=== PATIENT | male | born 1980 | race Hispanic/Latino ===

== ENCOUNTER 2019-07-05 12:53 | Emergency (ER) | payer OTHER ==
[2019-07-05] MEDS ORDERED: DOXYCYCLINE HYCLATE 100 MG TABLET PO ONE (13:34)
[2019-07-05] MEDS ORDERED: CEFTRIAXONE SODIUM 1 GM ONE (13:34)
[2019-07-05] MEDS ORDERED: LIDOCAINE HCL-MPF 1% 2ML VIAL ONE (13:34)
== END 2019-07-05 13:49 | disposition home or self-care (01) ==
LOC: EDH 12:53
DX: S91.111A Laceration without foreign body of right great toe without damage to nail, initial encounter (principal); S60.512A Abrasion of left hand, initial encounter; S90.812A Abrasion, left foot, initial encounter; S90.811A Abrasion, right foot, initial encounter; L03.031 Cellulitis of right toe; X58.XXXA Exposure to other specified factors, initial encounter; Y93.89 Activity, other specified; Y92.832 Beach as the place of occurrence of the external cause; Y99.8 Other external cause status
CPT/HCPCS: 73630; 96372; 99284; J0696; J3490

== ENCOUNTER 2025-08-20 20:19 | Emergency (ER) | payer OTHER ==
[~2025-08-20] VITALS: Ht 177.8 cm; Wt 117.9 kg
[2025-08-20 20:41] LABS: IMMATURE GRANULOCYTE ABSOLUTE 0.02 K/uL (0-1); NUCLEATED RED BLOOD CELLS 0.0 % (0.0-0.19); PLATELET COUNT (AUTO) 336 K/uL (130-400); RED BLOOD CELL COUNT(AUTO) 5.43 MIL/uL (4.50-6.20); RED CELL DISTRIBUTION WIDTH 12.1 % (11.0-15.5); WHITE BLOOD COUNT (AUTO) 8.4 K/uL (4.8-10.8)
[2025-08-20 20:51] LABS: CREATININE 0.9 mg/dL (0.5-1.3); GLOMERULAR FILTR. RATE CALC 107.0 mL/min (>90); GLUCOSE,RANDOM 132.0 mg/dL (70-105); SODIUM SERUM 141.0 mmol/L (136-145); UREA NITROGEN, BLOOD 9.0 mg/dL (7-18)
[2025-08-20 20:56] LABS: CREATINE KINASE, TOTAL 81.0 U/L (21-232)
--- NOTE | 2025-08-20 21:11 | HMCIMG ---
EXAM: CR Chest, 1 View. CLINICAL HISTORY: CHEST PAIN COMPARISON: None provided. FINDINGS: LUNGS: There is no mass, infiltrate, or acute pulmonary abnormality. PLEURAL SPACES: No evidence of pleural effusion or pneumothorax. MEDIASTINUM: Cardiac size and mediastinal contours within normal limits. BONES: No acute osseous abnormality. IMPRESSION: No acute cardiopulmonary pathology is evident. /[place]
[2025-08-20 21:37] LABS: APPEARANCE,URINE CLEAR (CLEAR); GLUCOSE, URINE (UA) NEGATIVE (NEGATIVE); LEUKOCYTE ESTERASE ,URINE NEGATIVE Leu/uL (NEGATIVE); NITRATE,URINE NEGATIVE (NEGATIVE); OCCULT BLOOD,URINE NEGATIVE (NEGATIVE)
[2025-08-20 21:43] LABS: AMPHET/METH SCREEN,URINE NEGATIVE (NEGATIVE); BARBITURATE SCREEN, URINE NEGATIVE (NEGATIVE); CANNABINOID SCREEN,URINE NEGATIVE (NEGATIVE); COCAINE SCREEN,URINE POSITIVE (NEGATIVE)
[2025-08-20 21:48] LABS: ADD UA MICROSCOPIC NO
[2025-08-20] MEDS: ASPIRIN 325MG TAB PO ONE (21:51)
[2025-08-20] MEDS: NITROGLYCERIN 1GM OINT 1 INCH/1GM TD ONE (21:51)
[2025-08-20] MEDS: 0.9%NACL 1000ML 1,000 ML IV ONE (21:51)
--- NOTE | 2025-08-20 22:11 | NUR ---
TRIAGE EDIT TO REFLECT UDS RESULTS
--- NOTE | 2025-08-20 22:32 | ERN ---
ED Note History of Present Illness Stated Complaint: CP Chief Complaint: Chest Pain Time Seen by MD: 20:22 Time Seen by Midlevel: 20:22 Dictation: The Patient is a 44-year-old male with no significant past medical history who presents to the emergency department with complaints of left-sided chest pain that radiates to the jaw onset prior to arrival. Patient reports pain as pr essure. Reports feeling lightheaded. Patient reports that he was outside [facility] ([facility]] and was upset at his dog for ruining some plants in the back yd. Patient reports some shortness of breath. Denies any drug use, denies any recent travel or upper respiratory symptoms. Allergies: Coded Allergies: No Known Allergies (Unverified Allergy, Unknown, 07/05/19) Past Medical History Past Medical History: Hypertension Surgical History: None RN Note Reviewed/Agreed w/PFSH: Yes Review of System Dictation Constitutional: Negative for fever,chills, and weight loss Eyes: Negative for injury, pain,redness, and discharge ENT: Negative for injury,pain or swelling Cardiovascular: Negative for palpitations, and edema positive for chest pain Respiratory: Negative for cough, and wheezing, positive for shortness of breath Abdomen/GI: Negative for abdominal pain, nausea, vomiting, diarrhea, and constipation Back: Negative for injury and pain : Negative for injury, bleeding and discharge MS/Extremity: Negative for injury and deformity Skin: Negative for rash, and discoloration Neuro: Negative for headache, weakness, numbness, tingling, and seizure Psych: Negative for suicide ideation, homicidal ideation, and hallucinations Initial Vital Sign VS Vital Signs Date Time Temp Pulse Resp B/P (MAP) Pulse Ox O2 Delivery O2 Flow Rate FiO2 08/20/25 20:20 97.9 122 20 197/110 97 Room Air 08/20/25 20:36 0 21 Physical Exam Dictation Vital Signs reviewed General Appearance: Alert, oriented x 3, no acute distress, well developed, nourished. Head and Face: non-traumatic. Eyes: PERRL, pink conjunctivas, eyelid no trauma, anterior chamber with arcus senilis. Ears: Pinnas intact and no signs of trauma or erythema ear canals clear and no discharge TM no erythema Nose: No discharge, no bleeding. Oropharynx: Mouth normal, tongue pink. pharynx clear,no erythema, tonsils no exudates, no abscesses noted, mucous membrane moist Neck: Supple, non-tender, no thyromegaly, no masses, no JVD, no bruits Breast:Deferred Chest:No tenderness, no crepitus, no paradoxical movement, no retractions Lungs:Clear, well-ventilated, symmetric, no rales, no wheezing, no rhonchi, no stridor, good breath sounds bilaterally Heart: Regular rate, regular rhythm, no murmur, no gallops Vascular: no peripheral edema, Abdomen: Soft, positive bowel sounds, nondistended, no guarding, nontender, no rebound, no masses no hepatomegaly, no splenomegaly, no Tong's sign, no hernias. Rectal: Deferred Genital: Deferred Neurological: Normal speech, motor function intact, sensory function intact Musculoskeletal: Neck nontender, full range of motion, back nontender, full range of motion, Extremities: nontender, full range of motion Skin: Color pink, dry, no turgor, no rash, no lacerations, no abrasions, no contusions. Lymphatic: Deferred Results (Laboratory/Radiology) Laboratory/Radiology Laboratory Tests Test 08/20/25 20:34 08/20/25 21:24 08/20/25 21:59 White Blood Count 8.4 K/uL (4.8-10.8) Red Blood Count 5.43 MIL/uL (4.50-6.20) Hemoglobin 16.2 g/dL (14.0-18.0) Hematocrit 46.5 % (42-54) Mean Corpuscular Volume 85.6 fL (79-99) Mean Corpuscular Hemoglobin 29.8 pg (27.0-33.0) Mean Corpuscular Hemoglobin Concent 34.8 g/dL (32.0-36.0) Red Cell Distribution Width 12.1 % (11.0-15.5) Platelet Count 336 K/uL (130-400) Mean Platelet Volume 9.6 fL (7.5-10.5) Immature Granulocyte % (Auto) 0.2 % (0-1) Neutrophils (%) (Auto) 46.5 % (40.0-77.0) Lymphocytes (%) (Auto) 44.7 % (21.0-51.0) Monocytes (%) (Auto) 5.6 % (3.0-13.0) Eosinophils (%) (Auto) 2.5 % (0.0-8.0) Basophils (%) (Auto) 0.5 % (0.0-5.0) Neutrophils # (Auto) 3.9 K/uL (1.8-7.7) Lymphocytes # (Auto) 3.7 K/uL (1.0-4.8) Monocytes # (Auto) 0.5 K/uL (0.1-1.0) Eosinophils # (Auto) 0.21 K/uL (0.00-0.70) Basophils # (Auto) 0.04 K/uL (0.00-0.20) Absolute Immature Granulocyte (auto 0.02 K/uL (0-1) Nucleated Red Blood Cells 0.0 % (0.0-0.19) Sodium Level 141 mmol/L (136-145) Potassium Level 3.6 mmol/L (3.5-5.1) Chloride Level 101 mmol/L (101-111) Carbon Dioxide Level 28 mmol/L (21-32) Blood Urea Nitrogen 9 mg/dL (7-18) Creatinine 0.9 mg/dL (0.5-1.3) Glomerular Filtration Rate Calc 107 mL/min (>90) Random Glucose 132 mg/dL (70-105) H Total Calcium 9.2 mg/dL (8.5-10.1) Total Creatine Kinase 81 U/L (21-232) Troponin I High Sensitivity < 4 ng/L (4-75) L 4 ng/L (4-75) B-Type Natriuretic Peptide 5 pg/mL (0-100) Lipase 56 U/L (16-77) Urine Color COLORLESS (YELLOW) Urine Appearance CLEAR (CLEAR) Urine pH 5.5 (5.0-8.0) Urine Specific [place] 1.007 (1.001-1.031) Urine Protein NEGATIVE mg/dL (NEGATIVE) Urine Glucose (UA) NEGATIVE mg/dL (NEGATIVE) Urine Ketones NEGATIVE mg/dL (NEGATIVE) Urine Occult Blood NEGATIVE (NEGATIVE) Urine Nitrate NEGATIVE (NEGATIVE) Urine Bilirubin NEGATIVE mg/dL (NEGATIVE) Urine Urobilinogen 0.2 mg/dL (0.2-1.0) Urine Leukocyte Esterase NEGATIVE Miguelina/uL Urine Opiates Screen NEGATIVE (NEGATIVE) Urine Barbiturates Screen NEGATIVE (NEGATIVE) Urine Phencyclidine Screen NEGATIVE (NEGATIVE) Urine Amphetamines Screen NEGATIVE (NEGATIVE) Urine Benzodiazepines Screen NEGATIVE (NEGATIVE) Urine Cocaine Screen POSITIVE (NEGATIVE) H Urine Marijuana (THC) Screen NEGATIVE (NEGATIVE) REASON: CHEST PAIN ORDERING PHYSICIAN: OLGA PEREZ MD PROCEDURE: CXR1VW - CHEST 1VW EXAM: CR Chest, 1 View. CLINICAL HISTORY: CHEST PAIN COMPARISON: None provided. FINDINGS: LUNGS: There is no mass, infiltrate, or acute pulmonary abnormality. PLEURAL SPACES: No evidence of pleural effusion or pneumothorax. MEDIASTINUM: Cardiac size and mediastinal contours within normal limits. BONES: No acute osseous abnormality. IMPRESSION: No acute cardiopulmonary pathology is evident. /[place] Labs Reviewed?: Yes EKG: (+) rhythm (Sinus tachycardia) EKG Comment: Date:08/20/2025 Time:2016 Ventricular rate:114 MS interval:154 QRS duration:91 QT/QTc:314/432 EKG interpretation: Sinus tachycardia Reviewed by ED Attending no STEMI ED Course ED Course Orders Procedure Category Date Status Time Vital Signs Per CPOE 08/20/25 Transmitted Routine 20:21 Chest 1vw RAD 08/20/25 Resulted 20:21 12 Lead Ekg Tracing- EKG 08/20/25 Logged Technical 20:21 Oxygen By Nc/Pulse Ox CPOE 08/20/25 Transmitted 20:21 Maintain Iv CPOE 08/20/25 Transmitted 20:21 Iv Insertion CPOE 08/20/25 Transmitted 20:21 Cardiac Monitoring CPOE 08/20/25 Transmitted 20:21 Pulse Oximetry With CPOE 08/20/25 Transmitted Vs And Prn 20:21 Cbc With Differential LAB 08/20/25 Complete 20:21 Activity: Br W/Brp CPOE 08/20/25 Transmitted With Assist 20:21 Creatine Kinase, Total LAB 08/20/25 Complete 20:21 Troponin I High LAB 08/20/25 Complete Sensitivity 20:21 Urinalysis Profile LAB 08/20/25 Complete 20:21 Basic Metabolic Panel LAB 08/20/25 Complete 20:21 Lipase LAB 08/20/25 Complete 20:21 Drug Screen Urine LAB 08/20/25 Complete 20:21 B-Type Natriuretic LAB 08/20/25 Complete Peptide 20:33 0.9%Nacl 1000ml (Ns PHA 08/20/25 In Process 1000ml) 21:00 Nitroglycerin 1gm PHA 08/20/25 Complete Oint (Nitroglycerin 1g 21:00 Aspirin 325mg Tab PHA 08/20/25 Complete (Aspirin 325mg Tab) 21:00 Troponin I High LAB 08/20/25 Complete Sensitivity 21:45 Current Medications Medications (Trade) Dose Ordered Sig/Danielito Route PRN Reason Start Time Stop Time Status Last Admin Dose Admin Aspirin (Aspirin 325mg Tab) 325 mg ONCE ONCE PO 08/20/25 21:00 08/20/25 21:01 DC 08/20/25 21:51 Nitroglycerin (Nitroglycerin 1gm Oint) 1 inch ONCE ONCE TD 08/20/25 21:00 08/20/25 21:01 DC 08/20/25 21:51 Sodium Chloride 1,000 ml @ 125 mls/hr ONCE ONCE IV 08/20/25 21:00 08/21/25 04:59 08/20/25 21:51 Vital Signs Date Time Temp Pulse Resp B/P (MAP) Pulse Ox O2 Delivery O2 Flow Rate FiO2 08/20/25 22:02 92 18 142/92 92 Room Air* 0 08/20/25 20:36 110 16 161/105 96 Room Air* 0 08/20/25 20:20 97.9 122 20 197/110 97 Room Air HEART Score Response (Comments) Value History: Moderate suspicion (+1) 1 EKG: Normal 0 Age: 45-65yrs (+1) 1 Risk Factors: 1-2 risk factors (+1) 1 Initial Troponin: Normal limit (0) 0 Total 3 Medical Decision Making MDM The Patient is a 44-year-old male with no significant past medical history who presents to the emergency department with complaints of left-sided chest pain that radiates to the jaw onset prior to arrival. Patient reports pain as pres sure. Reports feeling lightheaded. Patient reports that he was outside barbecuing and was upset at his dog for ruining some plants in the back yd. Patient reports some shortness of breath. Denies any drug use, denies any recent travel or upper respiratory symptoms. CBC showed no leukocytosis, no anemia, chemistry showed no electrolyte imbalance, negative troponin x2, chest x-ray showed no acute pathology, urinary drug screen positive for cocaine. Patient was reassessed. Reports his chest pain and shortness of breath went away. Patient reports he feels calm now. Reports he was just having an anxiety attack because of the issues with the his dogs. Patient continues in no acute distress, neurologically intact. Vital signs are stable. Tachycardia improved. Patient with no swelling to bilateral lower legs, no recent travel or recent surgeries. Not hypoxic. Patient with low heart score. We will discharge patient to follow up with PCP. Differential diagnosis: ACS, anxiety, pneumonia, pneumothorax, electrolyte imbalance Need for hospitalization: Patient does not meet criteria for hospitalization. There are no social concerns with this patient. DX & DISP Disposition: Discharge Departure Impression: Primary Impression: Chest pain Additional Impression: Cocaine abuse Condition: Stable Additional Instructions: Your labs and x-ray were unremarkable. Please avoid drug use. Follow up with your primary doctor in 1-2 days. If anything worsens please return to ER. FOLLOW-UP WITH PRIMARY CARE PROVIDER IN 1 TO 2 DAYS. TAKE MEDICATIONS DIRECTED HERE IN THE EMERGENCY ROOM. OKAY TO CONTINUE HOME MEDICATIONS UNLESS OTHERWISE DISCUSSED DURING YOUR VISIT IN THE EMERGENCY ROOM TODAY. RETURN TO YOUR NEAREST EMERGENCY ROOM IF SYMPTOMS WORSEN OR IF THERE IS NO IMPROVEMENT. CALL 911 IF YOU NEED IMMEDIATE ASSISTANCE. TAKE TYLENOL [id number] NEEDED AND IF NO CONTRAINDICATIONS ARE PRESENT. INCREASE ORAL HYDRATION. A WOUND CULTURE OR URINE CULTURE WAS ORDERED HERE IN THE EMERGENCY ROOM DEPARTMENT PLEASE FOLLOW-UP WITH PRIMARY CARE PROVIDER AND ADVISE THEM TO GET REPEAT PORTS FROM OUR FACILITY. IF YOU HAD ANY NICOHLAS WRAP/SPLINTS THAT WERE APPLIED HERE, PLEASE DO NOT REMOVE THEM UNTIL YOU SEE YOUR PRIMARY CARE OR SPECIALTY. Referrals: BERENICE ALMARAZ MD (PCP) Time of Disposition: 22:56 I have reviewed the case, and I agree with, Diagnosis and Plan [facility] Aug 20, 2025 22:32
[2025-08-20 23:08] VITALS: BP 150/80; PULSE 80; RESP 18; TEMP 98.4; O2SAT 98
--- NOTE | 2025-08-21 07:59 | EKG ---
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
== END 2025-08-20 23:10 | disposition home or self-care (01) ==
LOC: EDH 20:19
DX: R07.89 Other chest pain (principal); F14.10 Cocaine abuse, uncomplicated; I10 Essential (primary) hypertension
CPT/HCPCS: 99285; 71045; 82550; 84484 ×2; 80048; 83880; 80305; 83690; 85025; 36415; 93005; 81003; J7030

== ENCOUNTER 2025-09-08 19:15 | Emergency (ER) | payer OTHER, MEDICARE ==
[~2025-09-08] VITALS: Ht 177.8 cm; Wt 117.9 kg
--- NOTE | 2025-09-08 19:23 | ERN ---
ED Note History of Present Illness Stated Complaint: ANXIETY AFTER INGESTING THC Chief Complaint: Anxiety/Panic Attack Time Seen by MD: 19:17 Dictation: PATIENT IS A 44-YEAR-OLD MALE COMING IN VIA EMS FROM A [facility]. HE STATES HE HIT HAS A HAIRCUT THIS AFTERNOON AND THEN 2 HOURS PRIOR TO ARRIVAL, HE WENT TO A LOCAL SMOKE SHOP AND BOUGHT SOME MEDICATION TO PUT IN HIS SLUSHY AND THEN EIGHT AN EDIBLE. HE STATES NOW HE IS HAVING HALLUCINATIONS FEELS VERY ANXIOUS. DENIES SUICIDAL OR HOMICIDAL IDEATION. DENIES ANY OTHER HISTORY DRUG USE AND OR PSYCHIATRIC HISTORY. Allergies: Coded Allergies: No Known Allergies (Unverified Allergy, Unknown, 07/05/19) Past Medical History Past Medical History: Hypertension Surgical History: None Social History: Drugs RN Note Reviewed/Agreed w/PFSH: Yes Review of System Dictation CONSTITUTIONAL: NEGATIVE EXCEPT FOR HPI ANXIETY HEAD/FACE: NEGATIVE EXCEPT FOR HPI EENT: NEGATIVE EXCEPT FOR HPI RESPIRATORY: NEGATIVE EXCEPT FOR HPI GASTROINTESTINAL/ABDOMINAL: NEGATIVE EXCEPT FOR HPI GENITOURINARY: NEGATIVE EXCEPT FOR HPI MUSCULOSKELETAL: NEGATIVE EXCEPT FOR HPI INTEGUMENTARY: NEGATIVE EXCEPT FOR HPI NEUROLOGICAL/PSYCH: NEGATIVE EXCEPT FOR HPI HEMATOLOGIC/LYMPHATIC: NEGATIVE EXCEPT FOR HPI ALL SYSTEMS NEGATIVE, EXCEPT NOTED ABOVE. 13 POINT REVIEW OF SYSTEMS ASSESSED AND ALL NEGATIVE EXCEPT FOR ABOVE. Initial Vital Sign VS Vital Signs Date Time Temp Pulse Resp B/P (MAP) Pulse Ox O2 Delivery O2 Flow Rate FiO2 09/08/25 19:16 98.1 94 18 135/89 100 Nasal Cannula 0 09/08/25 20:56 21 Physical Exam Dictation VITAL SIGNS REVIEWED GENERAL APPEARANCE: ALERT, ORIENTED X 3, MODERATE ACUTE DISTRESS, WELL DEVELOPED, NOURISHED. PATIENT VERY ANXIOUS HEAD AND FACE: NON-TRAUMATIC. EYES: PERRL, PINK CONJUNCTIVAS, EYELID NO TRAUMA, ANTERIOR CHAMBER WITH ARCUS SENILIS. EARS: PINNAS INTACT AND NO SIGNS OF TRAUMA OR ERYTHEMA EAR CANALS CLEAR AND NO DISCHARGE TM NO ERYTHEMA NOSE: NO DISCHARGE, NO BLEEDING. OROPHARYNX: MOUTH NORMAL, TONGUE PINK, PHARYNX CLEAR,NO ERYTHEMA, TONSILS NO EXUDATES, NO ABSCESSES NOTED, MUCOUS MEMBRANE MOIST NECK: SUPPLE, NON-TENDER, NO THYROMEGALY, NO MASSES, NO JVD, NO BRUITS BREAST:DEFERRED CHEST:NO TENDERNESS, NO CREPITUS, NO PARADOXICAL MOVEMENT, NO RETRACTIONS LUNGS:CLEAR, WELL-VENTILATED, SYMMETRIC, NO RALES, NO WHEEZING, NO RHONCHI, NO STRIDOR, GOOD BREATH SOUNDS BILATERALLY HEART: REGULAR RATE, REGULAR RHYTHM, NO MURMUR, NO GALLOPS VASCULAR: NO PERIPHERAL EDEMA, ABDOMEN: SOFT, POSITIVE BOWEL SOUNDS, NONDISTENDED, NO GUARDING, NONTENDER, NO REBOUND, NO MASSES NO HEPATOMEGALY, NO SPLENOMEGALY, NO WU'S SIGN, NO HERNIAS. RECTAL: DEFERRED GENITAL: DEFERRED NEUROLOGICAL: NORMAL SPEECH, MOTOR FUNCTION INTACT, SENSORY FUNCTION INTACT DENIES SUICIDAL OR HOMICIDAL IDEATION STATES HE FEELS PSYCHOTI MUSCULOSKELETAL: NECK NONTENDER, FULL RANGE OF MOTION, BACK NONTENDER, FULL RANGE OF MOTION, EXTREMITIES: NONTENDER, FULL RANGE OF MOTION SKIN: COLOR PINK, DRY, NO TURGOR, NO RASH, NO LACERATIONS, NO ABRASIONS, NO CONTUSIONS. LYMPHATIC: DEFERRED Results (Laboratory/Radiology) Laboratory/Radiology Laboratory Tests Test 09/08/25 19:31 09/08/25 21:45 White Blood Count 8.7 K/uL (4.8-10.8) Red Blood Count 4.87 MIL/uL (4.50-6.20) Hemoglobin 14.5 g/dL (14.0-18.0) Hematocrit 42.5 % (42-54) Mean Corpuscular Volume 87.3 fL (79-99) Mean Corpuscular Hemoglobin 29.8 pg (27.0-33.0) Mean Corpuscular Hemoglobin Concent 34.1 g/dL (32.0-36.0) Red Cell Distribution Width 12.0 % (11.0-15.5) Platelet Count 284 K/uL (130-400) Mean Platelet Volume 9.8 fL (7.5-10.5) Immature Granulocyte % (Auto) 0.2 % (0-1) Neutrophils (%) (Auto) 70.4 % (40.0-77.0) Lymphocytes (%) (Auto) 23.1 % (21.0-51.0) Monocytes (%) (Auto) 4.5 % (3.0-13.0) Eosinophils (%) (Auto) 1.5 % (0.0-8.0) Basophils (%) (Auto) 0.3 % (0.0-5.0) Neutrophils # (Auto) 6.1 K/uL (1.8-7.7) Lymphocytes # (Auto) 2.0 K/uL (1.0-4.8) Monocytes # (Auto) 0.4 K/uL (0.1-1.0) Eosinophils # (Auto) 0.13 K/uL (0.00-0.70) Basophils # (Auto) 0.03 K/uL (0.00-0.20) Absolute Immature Granulocyte (auto 0.02 K/uL (0-1) Nucleated Red Blood Cells 0.0 % (0.0-0.19) Sodium Level 140 mmol/L (136-145) Potassium Level 3.5 mmol/L (3.5-5.1) Chloride Level 101 mmol/L (101-111) Carbon Dioxide Level 27 mmol/L (21-32) Blood Urea Nitrogen 15 mg/dL (7-18) Creatinine 1.0 mg/dL (0.5-1.3) Glomerular Filtration Rate Calc 94 mL/min (>90) Random Glucose 222 mg/dL (70-105) H Total Calcium 8.8 mg/dL (8.5-10.1) Troponin I High Sensitivity 5 ng/L (4-75) Urine Opiates Screen NEGATIVE (NEGATIVE) Urine Barbiturates Screen NEGATIVE (NEGATIVE) Urine Phencyclidine Screen NEGATIVE (NEGATIVE) Urine Amphetamines Screen NEGATIVE (NEGATIVE) Urine Benzodiazepines Screen NEGATIVE (NEGATIVE) Urine Cocaine Screen POSITIVE (NEGATIVE) H Urine Marijuana (THC) Screen POSITIVE (NEGATIVE) H Labs Reviewed?: Yes EKG: (+) NSR EKG Comment: 1949/EKG NORMAL SINUS RHYTHM/HEART RATE 80/AXIS NORMAL/NO ECTOPY ED Course ED Course Orders Procedure Category Date Status Time Drug Screen Urine LAB 09/08/25 Complete 19:21 Cbc With Differential LAB 09/08/25 Complete 19:21 Troponin I High LAB 09/08/25 Complete Sensitivity 19:21 12 Lead Ekg Tracing- EKG 09/08/25 Complete Technical 19:21 Basic Metabolic Panel LAB 09/08/25 Complete 19:21 Vital Signs Date Time Temp Pulse Resp B/P (MAP) Pulse Ox O2 Delivery O2 Flow Rate FiO2 09/08/25 20:56 90 16 134/84 98 Room Air* 0 21 09/08/25 19:16 98.1 94 18 135/89 100 Nasal Cannula 0 2215/PATIENT HAS IS POSITIVE FOR POLYPHARMACY AND TO INCLUDE COCAINE POT AND AN UNKNOWN SUBSTANCE HE BOUGHT IT POKED HE IS PLAN AT A LOCAL SMOKE SHOP. HE IS ALERT AND ORIENTED X4 SPEECH IS CLEAR IN HIS GAIT IS STEADY TO THE RESTROOM. DISCHARGED HOME WITH HIS FAMILY HEART Score Response (Comments) Value EKG: Normal 0 Age: 45-65yrs (+1) 1 Risk Factors: 1-2 risk factors (+1) 1 Initial Troponin: Normal limit (0) 0 Total 2 Medical Decision Making MDM MDM: DIFFERENTIAL DIAGNOSIS: ACS/AMI/ANXIETY/PANIC ATTACK/POLYDRUG ABUSE/THC ABUSER RATIONALE: TESTS CONSIDERED AND ORDERED SECONDARY TO SHARED DECISION MAKING INCLUDE: LABS/EKG PREVIOUS OUTSIDE RECORDS REVIEWED: OLD ER VISITS. RISK OF COMPLICATION AND/OR MORBIDITY OR MORTALITY OF PATIENT MANAGEMENT: NONE MEDICATIONS-PER MEDICATION RECONCILIATION NEED FOR HOSPITALIZATION: PATIENT DOES NOT MEET CRITERIA FOR HOSPITALIZATION. NONE NEED FOR EMERGENCY MAJOR/MINOR SURGERY: NO THERE ARE NO SOCIAL CONCERNS WITH THIS PATIENT. POLYSUBSTANCE ABUSER PRESCRIPTION DRUG MANAGEMENT PRESCRIPTIONS WILL INCLUDE SYMPTOMATIC CARE PATIENT'S PRIOR EXTERNAL MEDICAL RECORDS FROM OTHER ER VISITS WERE REVIEWED BY ME INDICATED. PRIOR TESTING AND RESULTS FROM PREVIOUS VISITS WERE REVIEWED. PRIOR TESTS WERE TAKEN INTO ACCOUNT WITH MEDICAL DECISION MAKING AND RESOURCE UTILIZATION, INDEPENDENT HISTORIAN/HISTORIANS WERE USED TO OBTAIN COMPLETE MEDICAL HISTORY. I INDEPENDENTLY INTERPRETED THE TEST THAT WERE PERFORMED, RESULTS WERE REVIEWED BY ME AND CONSIDERED FINDINGS ON RADIOLOGY IF ORDERED. MEDICAL MANAGEMENT AND EXAMINATION INTERPRETATION DISCUSSIONS WERE HAD BY ME WITH OTHER QUALIFIED HEALTHCARE PROFESSIONALS INDICATED FOR THE PATIENT'S CARE. DX & DISP Disposition: Discharge Departure Impression: Primary Impression: Polydrug abuse Additional Impressions: Cocaine use, Panic attack Condition: Stable Additional Instructions: FOLLOW-UP WITH PRIMARY CARE PROVIDER IN 1 TO 2 DAYS. TAKE MEDICATIONS DIRECTED HERE IN THE EMERGENCY ROOM. OKAY TO CONTINUE HOME MEDICATIONS UNLESS OTHERWISE DISCUSSED DURING YOUR VISIT IN THE EMERGENCY ROOM TODAY. RETURN TO YOUR NEAREST EMERGENCY ROOM IF SYMPTOMS WORSEN OR IF THERE IS NO IMPROVEMENT. CALL 911 IF YOU NEED IMMEDIATE ASSISTANCE. TAKE TYLENOL OR MOTRIN [id number] NEEDED AND IF NO CONTRAINDICATIONS ARE PRESENT. INCREASE ORAL HYDRATION. A WOUND CULTURE OR URINE CULTURE WAS ORDERED HERE IN THE EMERGENCY ROOM DEPARTMENT PLEASE FOLLOW-UP WITH PRIMARY CARE PROVIDER AND ADVISE THEM TO GET REPEAT PORTS FROM OUR FACILITY. IF YOU HAD ANY NICHOLAS WRAP/SPLINTS THAT WERE APPLIED HERE, PLEASE DO NOT REMOVE THEM UNTIL YOU SEE YOUR PRIMARY CARE OR SPECIALTY. STOP ALL DRUGS INCLUDING COCAINE. RISK OF COCAINE USE INCLUDE HEART ATTACK, STROKE, INSTANT TWO TO IT BEING MIXED WITH FENTANYL. INCREASE YOUR WATER INTAKE. SEE YOUR PRIMARY CARE DOCTOR FOR FOLLOW UP Referrals: BERENICE ALMARAZ MD (PCP) Time of Disposition: 22:19 I have reviewed the case, and I agree with, Diagnosis and Plan EV[facility] Sep 08, 2025 19:23
[2025-09-08 19:41] LABS: IMMATURE GRANULOCYTE ABSOLUTE 0.02 K/uL (0-1); NUCLEATED RED BLOOD CELLS 0.0 % (0.0-0.19); PLATELET COUNT (AUTO) 284 K/uL (130-400); RED BLOOD CELL COUNT(AUTO) 4.87 MIL/uL (4.50-6.20); RED CELL DISTRIBUTION WIDTH 12.0 % (11.0-15.5); WHITE BLOOD COUNT (AUTO) 8.7 K/uL (4.8-10.8)
--- NOTE | 2025-09-08 19:45 | NUR ---
PATIENT STATES HE IS UNABLE TO PROVIDE URINE SPECIMEN AT THIS TIME, U/A CUP PROVIDED AND PATIENT INSTRUCTED TO NOTIFY ME WHEN ABLE TO OBTAIN SPECIMEN.
[2025-09-08 19:49] LABS: CREATININE 1.0 mg/dL (0.5-1.3); GLOMERULAR FILTR. RATE CALC 94.0 mL/min (>90); GLUCOSE,RANDOM 222.0 mg/dL (70-105); SODIUM SERUM 140.0 mmol/L (136-145); UREA NITROGEN, BLOOD 15.0 mg/dL (7-18)
--- NOTE | 2025-09-08 19:56 | EKG ---
[facility] Test Date: 2025-09-08 Test Time: 19:49:30 Pat Name: DAVION GONZALES Department: [facility] Room: Gender: M Director Of Services: 1378 : 1980 Requested By: EVAN JOE Order Number: [id number] Reading MD: Yrn Basurto Measurements Intervals [place] Rate: 80 P: 20 [place]: 162 QRS: -13 QRSD: 103 T: 9 QT: 374 QTc: 431 Interpretive Statements Sinus rhythm Compared to ECG 08/20/2025 20:17:24 Sinus tachycardia no longer present Left anterior fascicular block no longer present Myocardial infarct finding no longer present Electronically Signed On 09-09-2025 17:45:54 CDT by Yrn Basurto Please click the below link to view image of tracing.
--- NOTE | 2025-09-08 20:28 | NUR ---
PATIENT STILL STATES HE IS UNABLE TO PROVIDE URINE SPECIMEN.
--- NOTE | 2025-09-08 21:33 | NUR ---
PATIENT RESTING WITH EYES CLOSED ON STRETCHER, NAD NOTED
[2025-09-08 22:02] LABS: AMPHET/METH SCREEN,URINE NEGATIVE (NEGATIVE); BARBITURATE SCREEN, URINE NEGATIVE (NEGATIVE); CANNABINOID SCREEN,URINE POSITIVE (NEGATIVE); COCAINE SCREEN,URINE POSITIVE (NEGATIVE)
[2025-09-08 22:37] VITALS: BP 116/59; PULSE 83; RESP 16; TEMP 97.8; O2SAT 98
== END 2025-09-08 22:42 | disposition home or self-care (01) ==
LOC: EDH 19:15
DX: F41.0 Panic disorder [episodic paroxysmal anxiety] (principal); F14.90 Cocaine use, unspecified, uncomplicated; F19.10 Other psychoactive substance abuse, uncomplicated; I10 Essential (primary) hypertension
CPT/HCPCS: 36415; 80048; 80305; 84484; 85025; 93005; 99284